=== PATIENT | female | born 1950 | race Caucasian/White ===

== ENCOUNTER 2019-07-06 16:40 | Emergency (ER) | payer MEDICARE ==
[~2019-07-06] VITALS: Ht 170.2 cm; Wt 95.3 kg
[~2019-07-06 16:40] MED LIST: ASPIRIN EC325 MG PO; COZAAR50 MG PO; METOPROLOL SUCC50 MG PO; NEURONTIN300 MG PO; PAXIL20 MG PO; SEROQUEL200 MG PO
[2019-07-06] MEDS ORDERED: METFORMIN HCL500 MG (16:55)
[2019-07-06] MEDS ORDERED: PRAVACHOL20 MG PO (16:56)
--- NOTE | 2019-07-06 22:04 | EKG ---
[facility] [address] [facility] [place] [address] Signed Normal sinus rhythm Normal ECG When compared with ECG of 10-JUL-2016 16:28, Inverted T waves have replaced nonspecific T wave abnormality in Inferior leads Confirmed by MAGDALENA TYSON MD ([id number]) on 07/06/2019 10:04:17 PM Electronically Signed By: MAGDALENA TYSON MD 07/06/19 2204 PATIENT NAME: DUSTIN CARMICHAEL Electrocardiogram DATE OF : 50 PHYSICIAN: MAGDALENA TYSON MD REPORT #: [id number] REPORT IS CONFIDENTIAL AND NOT TO BE RELEASED WITHOUT AUTHORIZATION
== END 2019-07-06 18:50 | disposition home or self-care (01) ==
LOC: ED 16:40
DX: E87.6 Hypokalemia (principal); F41.9 Anxiety disorder, unspecified; I10 Essential (primary) hypertension; Z87.891 Personal history of nicotine dependence; Z88.5 Allergy status to narcotic agent; Z79.899 Other long term (current) drug therapy
CPT/HCPCS: 71045; 80053; 81001; 83735; 84484; 85025; 93005; 93010; 96374; 96375; 99285-25; J2060; J2405; J7120

== ENCOUNTER 2020-07-01 11:55 | Emergency (ER) | payer MEDICARE ==
[~2020-07-01] VITALS: Ht 170.2 cm; Wt 95.2 kg
--- NOTE | ~2020-07-01 | EKG ---
[facility] [address] [facility] [place], [place] [address] Draft EK completed, results pending confirmation PATIENT NAME: DUSTIN CARMICHAEL Electrocardiogram DATE OF : 50 PHYSICIAN: PRELIMINARY REPORT #: [id number] REPORT IS CONFIDENTIAL AND NOT TO BE RELEASED WITHOUT AUTHORIZATION
[~2020-07-01 11:55] MED LIST changes: +METFORMIN HCL500 MG; +PRAVACHOL20 MG PO
[2020-07-01] MEDS ORDERED: ONDANSETRON ODT8 MG PO (14:21)
== END 2020-07-01 15:23 | disposition home or self-care (01) ==
LOC: ED 11:55
DX: K29.00 Acute gastritis without bleeding (principal); I48.91 Unspecified atrial fibrillation; F03.90 Unspecified dementia, unspecified severity, without behavioral disturbance, psychotic disturbance, mood disturbance, and anxiety; I10 Essential (primary) hypertension; F31.9 Bipolar disorder, unspecified; F41.9 Anxiety disorder, unspecified; Z87.891 Personal history of nicotine dependence; Z88.0 Allergy status to penicillin; Z88.5 Allergy status to narcotic agent; Z79.899 Other long term (current) drug therapy
CPT/HCPCS: 80053; 81001; 83690; 84484; 85025; 93005; 93010; 96374; 96375; 96376; 99284-25; J2405; J7040